=== PATIENT | male | born 1960 | race Caucasian/White ===

== ENCOUNTER 2023-05-02 06:15 | Day surgery (SDC) | payer BC ==
[~2023-05-02 06:15] MED LIST: Acetaminophen 1,000 MG in Premix Bag 1 BAG IV SCH; Lactated Ringers 1,000 ML IV SCH; Pregabalin 75 MG Cap PO SCH; ceFAZolin 2 GM in Sodium Chloride 0.9% 50 ML IV ONE
[2023-05-02] MEDS ORDERED: Dexamethasone 4 MG/ML 5 ML MDV IVPUSH ONE (06:16)
[2023-05-02] MEDS ORDERED: Glycopyrrolate 0.2 MG/ML SDV IVPUSH ONE (06:16)
[2023-05-02] MEDS ORDERED: propofoL 200 ML ONE (06:41)
[2023-05-02] MEDS ORDERED: Lidocaine 2% 5 ML SDV ONE (06:53)
[2023-05-02] MEDS ORDERED: Magnesium Sulfate (4.06 MEQ/ML) 5 GM/10 ML SDV ONE (06:53)
[2023-05-02] MEDS ORDERED: Sugammadex Sodium 200 MG/2 ML VIAL ONE (06:53)
[2023-05-02] MEDS ORDERED: Ketorolac 30 MG/ML SDV ONE (06:53)
[2023-05-02] MEDS ORDERED: Rocuronium Bromide 50 MG/5 ML Syringe ONE (06:53)
[2023-05-02] MEDS ORDERED: Ondansetron 4 MG/2 ML SDV ONE (06:53)
[2023-05-02] MEDS ORDERED: Morphine 10 MG/ML SDV ONE (06:59)
[2023-05-02] MEDS ORDERED: fentaNYL 100 MCG/2 ML SDV ONE (06:59)
[2023-05-02] MEDS ORDERED: Albuterol 0.083% 2.5 MG/3 ML Neb Soln NEB PRN (07:14)
[2023-05-02] MEDS ORDERED: HYDROmorphone 1 MG/ML Syringe IVPUSH PRN (07:14)
[2023-05-02] MEDS ORDERED: fentaNYL 50 MCG/ML SDV IVPUSH PRN (07:14)
[2023-05-02] MEDS ORDERED: Ondansetron 4 MG/2 ML SDV IVPUSH PRN (07:14)
[2023-05-02] MEDS ORDERED: droPERidol 5 MG/2 ML SDV IVPUSH PRN (07:14)
[2023-05-02] MEDS ORDERED: Naloxone 0.4 MG/ML SDV IVPUSH PRN (07:14)
[2023-05-02] MEDS ORDERED: Metoclopramide 10 MG/2 ML SDV IVPUSH PRN (07:14)
[2023-05-02] MEDS ORDERED: Morphine 2 MG/ML SYRINGE IVPUSH PRN (07:14)
[2023-05-02] MEDS ORDERED: Bupivacaine 0.5% 30 ML SDV ONE (07:17)
[2023-05-02] MEDS ORDERED: Ropivacaine 0.5% 5 MG/ML 30 ML SDV ONE (07:29)
[2023-05-02] MEDS ORDERED: Bupivacaine 0.25% 30 ML SDV ONE (07:29)
[2023-05-02] MEDS ORDERED: ceFAZolin 2 GM Vial ONE (07:59)
[2023-05-02] MEDS ORDERED: Phenylephrine HCl 0.5 MG/5 ML AMP ONE (08:28)
[2023-05-04] MEDS ORDERED: propofoL 50 ML ONE (09:10)
[2023-05-04] MEDS ORDERED: Propofol 200 MG/20 ML SDV ONE ×2 (12:04→12:18)
== END 2023-05-02 12:05 | disposition home or self-care (01) ==
LOC: MW.SDS 06:15
PROVIDERS: ATTEND Surgery
DX: K40.90 Unilateral inguinal hernia, without obstruction or gangrene, not specified as recurrent (principal); K42.9 Umbilical hernia without obstruction or gangrene; Z87.891 Personal history of nicotine dependence
CPT/HCPCS: 49591; 49650; 64488; A9270; C1781; J0131; J0690; J1100; J1885; J2270; J2371; J2704; J2795; J3010; J3475; J3490; J7120; J2405